=== PATIENT | male | born 1990 | race Hispanic/Latino ===

== ENCOUNTER 2017-08-13 07:25 | Emergency (ER) | payer OTHER, SELFPAY ==
[2017-08-13] MEDS ORDERED: Adacel (T-DAP) 0.5 ML VIAL ONE (07:52)
[2017-08-13] MEDS ORDERED: Ketorolac Tromethamine 30 MG/ML VIAL ONE (08:06)
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
== END 2017-08-13 09:15 | disposition home or self-care (01) ==
LOC: MADERS 07:25
DX: S16.1XXA Strain of muscle, fascia and tendon at neck level, initial encounter (principal); S80.12XA Contusion of left lower leg, initial encounter; S60.221A Contusion of right hand, initial encounter; S40.011A Contusion of right shoulder, initial encounter; S20.229A Contusion of unspecified back wall of thorax, initial encounter; V54.9XXA Unspecified occupant of pick-up truck or van injured in collision with heavy transport vehicle or bus in traffic accident, initial encounter
CPT/HCPCS: 70450; 72125; 90471; 90715; 96374; J1885